=== PATIENT | female | born 1990 | race Two or more races ===

== ENCOUNTER 2021-07-30 10:31 | Emergency (ER) | payer MEDICAID, OTHER ==
[~2021-07-30] VITALS: Ht 157.5 cm; Wt 74.8 kg
[2021-07-30 11:23] VITALS: BP 125/81
[2021-07-30] MEDS ORDERED: ACETAMINOPHEN 500 MG TAB PO ONE (12:00)
== END 2021-07-30 12:28 | disposition home or self-care (01) ==
LOC: ER 10:31
DX: S29.012A Strain of muscle and tendon of back wall of thorax, initial encounter (principal); S30.0XXA Contusion of lower back and pelvis, initial encounter; J45.909 Unspecified asthma, uncomplicated; M62.830 Muscle spasm of back; V43.52XA Car driver injured in collision with other type car in traffic accident, initial encounter; Y93.89 Activity, other specified; Y92.89 Other specified places as the place of occurrence of the external cause; Y99.8 Other external cause status
CPT/HCPCS: 72070; 76856

== ENCOUNTER 2022-07-19 12:45 | Observation (INO) | payer MEDICAID, OTHER | END 2022-07-19 15:00 | disposition home or self-care (01) | LOC: LDRP 12:45 | PROVIDERS: ADMIT Obstetrics & Gynecology Obstetrics; ATTEND Obstetrics & Gynecology Obstetrics | DX: O26.852 Spotting complicating pregnancy, second trimester (principal); Z3A.22 22 weeks gestation of pregnancy | CPT/HCPCS: 59025; 76815; 94760; G0378 ==

== ENCOUNTER 2022-09-15 16:33 | Observation (INO) | payer MEDICAID ==
[~2022-09-15] VITALS: Ht 157.5 cm; Wt 79.3 kg
[2022-09-15 16:59] VITALS: BP 115/70
[2022-09-15 18:19] LABS: Urine Bacteria FEW /hpf (None Seen); Urine Hyaline Cast FEW /lpf (0 - 2); Urine Mucus FEW (None Seen); Urine WBC 25 /hpf (0 - 5)
[2022-09-15 18:34] LABS: Urine Blood Negative /uL (Negative)
[2022-09-15] MEDS ORDERED: PREN-96 PO (19:16)
== END 2022-09-15 20:05 | disposition home or self-care (01) ==
LOC: ER 16:33 → LDRP 17:53
PROVIDERS: ADMIT Obstetrics & Gynecology; ATTEND Obstetrics & Gynecology
DX: O26.893 Other specified pregnancy related conditions, third trimester (principal); R10.32 Left lower quadrant pain; O46.93 Antepartum hemorrhage, unspecified, third trimester; O99.513 Diseases of the respiratory system complicating pregnancy, third trimester; J45.909 Unspecified asthma, uncomplicated; Z3A.30 30 weeks gestation of pregnancy
CPT/HCPCS: 59025; 81001; 81002; 81025; 94760; 99284; G0378

== ENCOUNTER 2022-11-19 09:06 | Observation (INO) | payer MEDICAID ==
[~2022-11-19 09:06] MED LIST: PREN-96 PO
[2022-11-19] MEDS ORDERED: ceFAZolin 1GM/50ML 50 ML IV ONE ×2 (13:00→13:30)
[2022-11-19] MEDS ORDERED: ceFAZolin 1GM/50ML 100 ML IV ONE (13:06)
== END 2022-11-19 16:14 | disposition home or self-care (01) ==
LOC: LDRP 09:06 → UNDOADMOB 09:06 → LDRP 09:09
PROVIDERS: ADMIT Obstetrics & Gynecology; ATTEND Obstetrics & Gynecology
DX: O48.0 Post-term pregnancy (principal); O62.9 Abnormality of forces of labor, unspecified; Z3A.40 40 weeks gestation of pregnancy
CPT/HCPCS: 59025; 76818; 81002; 94760; 96361; 96365; G0378; J0690; 96360; 96366

== ENCOUNTER 2022-11-21 10:55 | Observation (INO) | payer MEDICAID | END 2022-11-21 14:12 | disposition home or self-care (01) | LOC: LDRP 10:55 | PROVIDERS: ADMIT Obstetrics & Gynecology; ATTEND Obstetrics & Gynecology | DX: O48.0 Post-term pregnancy (principal); Z20.822 Contact with and (suspected) exposure to COVID-19; O23.43 Unspecified infection of urinary tract in pregnancy, third trimester; Z3A.40 40 weeks gestation of pregnancy | CPT/HCPCS: 36415; 59025; 76818; 81002; 87426; 94760; 96360; 96361; G0378 ==

== ENCOUNTER 2022-11-22 16:24 | Observation (INO) | payer MEDICAID ==
[~2022-11-22] VITALS: Ht 157.5 cm; Wt 83.5 kg
== END 2022-11-22 18:54 | disposition home or self-care (01) ==
LOC: LDRP 16:24 → UNDOADMOB 16:24 → LDRP 16:26 → UNDODISOB 18:54
PROVIDERS: ADMIT Obstetrics & Gynecology; ATTEND Obstetrics & Gynecology
DX: O48.0 Post-term pregnancy (principal); O26.893 Other specified pregnancy related conditions, third trimester; N89.8 Other specified noninflammatory disorders of vagina; Z3A.40 40 weeks gestation of pregnancy
CPT/HCPCS: 59025; 76818; 81002; 94760; G0378

== ENCOUNTER 2022-11-23 09:46 | Inpatient (IN) | payer MEDICAID ==
[~2022-11-23] VITALS: Ht 157.5 cm; Wt 83.0 kg
[2022-11-23] MEDS ORDERED: LIDOCAINE 2%HCL (LOCAL ANESTH.) INJ 20ML MDV IJ PRN (10:15)
[2022-11-23] MEDS ORDERED: PHISODERM TOP SOLN 240ML BTL TOP PRN (10:15)
[2022-11-23] MEDS ORDERED: PROMETHAZINE HCL 25 MG/ML 1ML IV PRN (10:15)
[2022-11-23] MEDS ORDERED: WITCH HAZEL-GLYCERIN PAD TOP PRN (10:15)
[2022-11-23] MEDS ORDERED: BUTORPHANOL TARTRATE 2 MG/1 ML VIAL IV PRN ×2 (10:15)
[2022-11-23] MEDS ORDERED: DERMOPLAST 60ML BOTTLE TOP PRN (10:15)
[2022-11-23 10:54] LABS: Basophils # (auto) 0 10 ^3/uL (0-0.2); Basophils % (auto) 0.4 % (0.0-2.0); Eosinophils # (auto) 0 10 ^3/uL (0-0.8); Eosinophils % (auto) 0.2 % (0.0-7.0); Hematocrit 33.7 % (36.0-46.0); Hemoglobin 11.5 g/dL (12.2-16.2); Lymphocytes # (auto) 1.6 10 ^3/uL (0.4-5.4); Lymphocytes % (auto) 14.8 % (10.0-50.0); Mean Corpuscular Hemoglobin 28.4 pg (28.0-32.0); Mean Corpuscular Hgb Conc. 34.1 g/dL (32.0-36.0); Mean Corpuscular Volume 83.1 fL (80.0-100.0); Monocytes # (auto) 0.4 10 ^3/uL (0-1.3); Monocytes % (auto) 4.1 % (0.0-12.0); Neutrophils # (auto) 8.8 10 ^3/uL (1.6-8.6); Neutrophils % (auto) 80.5 % (37.0-80.0); Nucleated Red Blood Cells % 0.1 %; Red Blood Cells 4.05 10^6/uL (4.0-5.20); Red Cell Distribution Width 16.1 % (11.8-14.3)
[2022-11-23 11:03] LABS: Albumin 2.5 g/dL (3.4-5.0); Calcium 8.5 mg/dL (8.5-10.1); Potassium 3.7 mmol/L (3.5-5.1)
[2022-11-23 11:07] LABS: BUN/Creatinine Ratio 11.9; Bilirubin, Total 0.2 mg/dL (0.2-1.0); Total Protein 6.1 g/dL (6.4-8.2)
[2022-11-23 11:17] LABS: Alcohol, Urine < 3.0 mg/dL (0-10); Amphetamine Screen, Urine NEGATIVE (NEGATIVE); Barbiturate Scree,Urine NEGATIVE (NEGATIVE); Benzodiazephine Screen, Urine NEGATIVE (NEGATIVE); Cannabinoid Screen, Urine NEGATIVE (NEGATIVE); Cocaine Screen, Urine NEGATIVE (NEGATIVE); Opiate Scree,Urine NEGATIVE (NEGATIVE); Phencyclidine Screen, Urine NEGATIVE (NEGATIVE)
[2022-11-23] MEDS: miSOPROStol 50 MCG per PRE-CUT 1/2 TAB PO PRN ×3 (11:19→20:02)
[2022-11-23 11:49] LABS: Urine Bacteria FEW /hpf (None Seen); Urine Blood Negative /uL (Negative); Urine Mucus FEW (None Seen); Urine Specific Gravity 1.016 (1.001-1.035); Urine WBC 25 /hpf (0 - 5)
[2022-11-23 12:41] LABS: INR 0.91 (0.9-1.15); Partial Thromboplastin Time 26.4 sec (24.6-33.4)
[2022-11-23] MEDS: LACTATED RINGER'S 1,000 ML IV SCH ×2 (15:10→15:11)
[2022-11-23] MEDS: ceFAZolin 1GM/50ML 50 ML IV SCH (16:04)
[2022-11-23] MEDS ORDERED: LACTATED RINGER'S 1,000 ML IV ONE (20:15)
[2022-11-23] MEDS ORDERED: ePHEDrine SULFATE 50 MG/ML AMP IV ONE ×2 (20:15→20:30)
[2022-11-23] MEDS ORDERED: NALOXONE HCL 0.4 MG/ML VIAL IV ONE ×2 (20:15→20:30)
[2022-11-23] MEDS ORDERED: ROPIVACAINE HCL 200 ML EPI SCH ×2 (20:15→20:30)
[2022-11-23] MEDS ORDERED: LIDOCAINE HCL 2 %PF INJ 10ML AMP IJ ONE (20:30)
[2022-11-23] MEDS ORDERED: fentaNYL CITRATE 100 MCG/2 ML VL IV ONE (20:30)
[2022-11-23] MEDS ORDERED: LIDOCAINE 1%-Mpf/Epinephrine 1:200,000 IJ ONE (20:30)
[2022-11-23 21:14] LABS: Basophils # (auto) 0 10 ^3/uL (0-0.2); Basophils % (auto) 0.1 % (0.0-2.0); Eosinophils # (auto) 0 10 ^3/uL (0-0.8); Hematocrit 35.4 % (36.0-46.0); Hemoglobin 11.7 g/dL (12.2-16.2); Lymphocytes # (auto) 1.4 10 ^3/uL (0.4-5.4); Lymphocytes % (auto) 10.3 % (10.0-50.0); Mean Corpuscular Hemoglobin 27.5 pg (28.0-32.0); Mean Corpuscular Volume 83.5 fL (80.0-100.0); Monocytes # (auto) 0.5 10 ^3/uL (0-1.3); Monocytes % (auto) 3.7 % (0.0-12.0); Neutrophils # (auto) 11.6 10 ^3/uL (1.6-8.6); Neutrophils % (auto) 85.9 % (37.0-80.0); Red Blood Cells 4.24 10^6/uL (4.0-5.20); Red Cell Distribution Width 15.8 % (11.8-14.3); White Blood Cell 13.6 10^3/uL (4.4-10.8)
[2022-11-24] VITALS (8 sets, daily range): BP systolic 78–113; BP diastolic 46–65
[2022-11-24] MEDS: ceFAZolin 1GM/50ML 50 ML IV SCH ×4 (00:01→17:10)
[2022-11-24] MEDS: LACTATED RINGER'S 1,000 ML IV SCH ×3 (00:07→12:59)
[2022-11-24] MEDS ORDERED: LACT. RINGERS/OXYTOCIN 20UNITS 500 ML IV ONE (02:30)
[2022-11-24] MEDS ORDERED: LACT. RINGERS/OXYTOCIN 20UNITS 1,000 ML IV SCH ×2 (03:00→07:15)
[2022-11-24 06:06] LABS: RPR Non Reactive (Non Reactive)
[2022-11-24] MEDS ORDERED: TERBUTALINE SULFATE 1 MG/ML 1ML VIAL SC PRN (07:15)
[2022-11-24] MEDS ORDERED: LIDOCAINE HCL 2 %PF INJ 10ML AMP IJ ONE (09:17)
[2022-11-24] MEDS ORDERED: MORPHINE SULF PF 5 MG/10 ML VIAL ONE (09:19)
[2022-11-24] MEDS ORDERED: fentaNYL CITRATE 100 MCG/2 ML VL ONE (09:19)
[2022-11-24] MEDS ORDERED: SODIUM BICARBONATE INFANT SYR 10 ML SYRG IV ONE (09:20)
[2022-11-24] MEDS ORDERED: DexAMETHasone SOD PHOS 10MG/1ML VIAL INJ ONE (09:20)
[2022-11-24] MEDS ORDERED: ONDANSETRON HCL 4 MG/2 ML VIAL ONE ×2 (09:20→13:49)
[2022-11-24] MEDS ORDERED: MIDAZOLAM HCL 2MG/2ML 2ml VIAL (1mg/ml) ONE (09:20)
[2022-11-24] MEDS ORDERED: oxyTOCIN 10 UNIT/ML 10ML VIAL ONE (09:20)
[2022-11-24] MEDS ORDERED: DOCU-94 PO (09:22)
[2022-11-24] MEDS ORDERED: IBUP800T27 PO (09:23)
[2022-11-24] MEDS ORDERED: HYDR-4902 PO (09:23)
[2022-11-24] MEDS ORDERED: LACT. RINGERS/OXYTOCIN 20UNITS 1,000 ML IV ONE (09:30)
[2022-11-24] MEDS ORDERED: ONDANSETRON HCL 4 MG/2 ML VIAL IV PRN (09:30)
[2022-11-24] MEDS ORDERED: GUM (CHEWING) 1 GUM CHEW CHEW ONE (09:30)
[2022-11-24] MEDS ORDERED: CARBOPROST TROMETHAMINE 250 MCG/1ML VIAL IM ONE (09:51)
[2022-11-24] MEDS ORDERED: HYDROmorphone HCL 2 MG/ML VL/or syr IV PRN ×2 (11:00)
[2022-11-24] MEDS ORDERED: NALOXONE HCL 0.4 MG/ML VIAL IV PRN (11:00)
[2022-11-24] MEDS ORDERED: METOCLOPRAMIDE HCL 5MG/ml INJ 2ml VIAL IV PRN (11:00)
[2022-11-24] MEDS ORDERED: MORPHINE SULFATE 4 MG/ML SYR/VIAL IV PRN (11:00)
[2022-11-24] MEDS ORDERED: KETOROLAC TROMETH 30 MG/ML 1ML VIAL IV ONE (11:00)
[2022-11-24] MEDS ORDERED: diphenhdrAMINE HCL 50 MG/1 ML VL IV PRN (11:00)
[2022-11-24] MEDS ORDERED: ePHEDrine SULFATE 50 MG/ML AMP IV ONE (11:45)
[2022-11-24] MEDS ORDERED: ALBUTEROL SULF 2.5 MG/0.5ML(0.5%) NEB SOLN NEB PRN (12:45)
[2022-11-24] MEDS ORDERED: ALBUTEROL MEDNEB 2.5 mg/3ml NEB ONE (12:47)
[2022-11-24 12:59] LABS: Basophils # (auto) 0 10 ^3/uL (0-0.2); Basophils % (auto) 0.2 % (0.0-2.0); Eosinophils # (auto) 0 10 ^3/uL (0-0.8); Hematocrit 32.4 % (36.0-46.0); Hemoglobin 11.2 g/dL (12.2-16.2); Lymphocytes # (auto) 0.9 10 ^3/uL (0.4-5.4); Lymphocytes % (auto) 3.7 % (10.0-50.0); Mean Corpuscular Hemoglobin 28.8 pg (28.0-32.0); Mean Corpuscular Hgb Conc. 34.5 g/dL (32.0-36.0); Mean Corpuscular Volume 83.7 fL (80.0-100.0); Monocytes # (auto) 0.7 10 ^3/uL (0-1.3); Monocytes % (auto) 3.1 % (0.0-12.0); Neutrophils # (auto) 22.2 10 ^3/uL (1.6-8.6); Red Blood Cells 3.87 10^6/uL (4.0-5.20); White Blood Cell 23.8 10^3/uL (4.4-10.8)
[2022-11-24] MEDS ORDERED: ALBUMIN 5% 50 ML IV ONE ×2 (13:00→13:05)
[2022-11-24 13:17] LABS: Albumin 2.1 g/dL (3.4-5.0); Calcium 7.9 mg/dL (8.5-10.1); INR 0.92 (0.9-1.15); Partial Thromboplastin Time 26.2 sec (24.6-33.4); Potassium 4.3 mmol/L (3.5-5.1)
[2022-11-24 13:20] LABS: Bilirubin, Total 0.3 mg/dL (0.2-1.0); Total Protein 5.6 g/dL (6.4-8.2)
[2022-11-24] MEDS ORDERED: KETOROLAC TROMETH 30 MG/ML 1ML VIAL ONE (13:49)
[2022-11-24] MEDS ORDERED: SODIUM CHLORIDE 0.9% 1,000 ML IV SCH (16:45)
[2022-11-24 20:50] LABS: Albumin 2.1 g/dL (3.4-5.0); Calcium 8.3 mg/dL (8.5-10.1); Potassium 4.3 mmol/L (3.5-5.1)
[2022-11-24 20:53] LABS: Bilirubin, Total 0.3 mg/dL (0.2-1.0)
[2022-11-24 22:00] LABS: Basophils # (auto) 0.1 10 ^3/uL (0-0.2); Basophils % (auto) 0.4 % (0.0-2.0); Eosinophils # (auto) 0 10 ^3/uL (0-0.8); Hematocrit 28.3 % (36.0-46.0); Hemoglobin 9.5 g/dL (12.2-16.2); Lymphocytes # (auto) 1.2 10 ^3/uL (0.4-5.4); Lymphocytes % (auto) 6.4 % (10.0-50.0); Mean Corpuscular Hemoglobin 28.2 pg (28.0-32.0); Mean Corpuscular Hgb Conc. 33.7 g/dL (32.0-36.0); Mean Corpuscular Volume 83.7 fL (80.0-100.0); Monocytes % (auto) 5.2 % (0.0-12.0); Neutrophils # (auto) 16.8 10 ^3/uL (1.6-8.6); Red Blood Cells 3.38 10^6/uL (4.0-5.20); Red Cell Distribution Width 16.4 % (11.8-14.3); White Blood Cell 19.1 10^3/uL (4.4-10.8)
[2022-11-24 22:17] LABS: BUN/Creatinine Ratio 11.5; Calcium 8.2 mg/dL (8.5-10.1); Potassium 4.2 mmol/L (3.5-5.1)
[2022-11-25] VITALS (13 sets, daily range): BP systolic 77–105; BP diastolic 43–55
[2022-11-25] MEDS: ceFAZolin 1GM/50ML 50 ML IV SCH (00:52)
[2022-11-25 07:09] LABS: Basophils # (auto) 0 10 ^3/uL (0-0.2); Basophils % (auto) 0.2 % (0.0-2.0); Eosinophils # (auto) 0 10 ^3/uL (0-0.8); Eosinophils % (auto) 0.1 % (0.0-7.0); Hemoglobin 8.9 g/dL (12.2-16.2); Lymphocytes % (auto) 13.4 % (10.0-50.0); Mean Corpuscular Hemoglobin 28.8 pg (28.0-32.0); Mean Corpuscular Hgb Conc. 34.4 g/dL (32.0-36.0); Mean Corpuscular Volume 83.9 fL (80.0-100.0); Monocytes # (auto) 1.1 10 ^3/uL (0-1.3); Monocytes % (auto) 7.6 % (0.0-12.0); Neutrophils # (auto) 11.7 10 ^3/uL (1.6-8.6); Neutrophils % (auto) 78.7 % (37.0-80.0); Nucleated Red Blood Cells % 0.1 %; Red Cell Distribution Width 16.9 % (11.8-14.3); White Blood Cell 14.9 10^3/uL (4.4-10.8)
[2022-11-25] MEDS: ACETAMINOPHEN IV 1000 MG/100ML (10MG/ML) IV PRN ×2 (08:16→15:54)
[2022-11-25] MEDS: IBUPROFEN 800 MG TAB PO PRN ×3 (11:32→16:27)
[2022-11-25] MEDS ORDERED: KETOROLAC TROMETH 30 MG/ML 1ML VIAL IV ONE (11:45)
[2022-11-25] MEDS: FERROUS SULFATE 325mg EC TAB PO SCH ×3 (11:53→22:15)
[2022-11-25 17:05] LABS: Cholesterol 179 mg/dL (< 200); HDL Cholesterol 56 mg/dL (40-59); LDL Cholesterol 89 mg/dL (< 100); Triglycerides 331 mg/dL (< 150)
[2022-11-25] MEDS: IBUPROFEN 100MG/5ML ORAL SUSP 100 MG/5 ML UD PO PRN (20:28)
[2022-11-26] MEDS: ACETAMINOPHEN 650 mg PER 20.3 mL UD PO PRN ×2 (01:52→12:40)
[2022-11-26 05:00] VITALS: BP 97/54
[2022-11-26] MEDS: FERROUS SULFATE 325mg EC TAB PO SCH ×2 (05:29→16:03)
[2022-11-26 06:43] VITALS: BP 102/58
[2022-11-26 08:00] VITALS: BP 105/60
[2022-11-26] MEDS: IBUPROFEN 100MG/5ML ORAL SUSP 100 MG/5 ML UD PO PRN (08:10)
[2022-11-26 10:00] VITALS: BP 93/59
[2022-11-26 12:00] VITALS: BP 110/58
[2022-11-26 16:00] VITALS: BP 101/60
== END 2022-11-26 16:33 | disposition home or self-care (01) | DRG 540 ==
LOC: LDRP 09:46 → TELE-CENTR 11-25 14:05
PROVIDERS: ADMIT Obstetrics & Gynecology; ATTEND Internal Medicine Pulmonary Disease
PROC: 3E0P7VZ Introduction of Hormone into Female Reproductive, Via Natural or Artificial Opening (ICD-10-PCS; 2022-11-23)
PROC: 10D00Z1 Extraction of Products of Conception, Low, Open Approach (ICD-10-PCS; principal; 2022-11-24 09:29)
DX: O48.0 Post-term pregnancy (principal); J96.01 Acute respiratory failure with hypoxia; I21.A1 Myocardial infarction type 2; I50.31 Acute diastolic (congestive) heart failure; I47.1 Supraventricular tachycardia; O23.43 Unspecified infection of urinary tract in pregnancy, third trimester; O99.42 Diseases of the circulatory system complicating childbirth; O76 Abnormality in fetal heart rate and rhythm complicating labor and delivery; O99.52 Diseases of the respiratory system complicating childbirth; O99.214 Obesity complicating childbirth; O61.9 Failed induction of labor, unspecified; Z20.822 Contact with and (suspected) exposure to COVID-19; O26.53 Maternal hypotension syndrome, third trimester; O69.1XX0 Labor and delivery complicated by cord around neck, with compression, not applicable or unspecified; O77.0 Labor and delivery complicated by meconium in amniotic fluid; J45.909 Unspecified asthma, uncomplicated; O99.02 Anemia complicating childbirth; Z37.0 Single live birth; Z3A.40 40 weeks gestation of pregnancy; Z82.5 Family history of asthma and other chronic lower respiratory diseases
CPT/HCPCS: 36415; 36600; 59025; 62282; 70450; 71045; 76700; 78582; 80048; 80053; 80061; 80307; 81001; 81002; 82533; 82805; 83036; 83880; 84443; 84484; 85025; 85384; 85610; 85730; 86592; 86850; 86900; 86901; 86920; 87426; 93306; 94640; 94760; 94762; 96360; 96361; G0378; J0131; J0690; J1100; J1885; J2250; J2405; J2590

== ENCOUNTER 2023-04-22 08:19 | Inpatient (IN) | payer MEDICAID ==
[~2023-04-22] VITALS: Ht 157.5 cm; Wt 67.4 kg
[~2023-04-22 08:19] MED LIST changes: +DOCU-94 PO; +HYDR-4902 PO; +IBUP-1456 PO
[2023-04-22 09:23] LABS: Basophils # (auto) 0 10 ^3/uL (0-0.2); Basophils % (auto) 0.5 % (0.0-2.0); Eosinophils # (auto) 0.1 10 ^3/uL (0-0.8); Eosinophils % (auto) 2.7 % (0.0-7.0); Hematocrit 38.3 % (36.0-46.0); Hemoglobin 13.1 g/dL (12.2-16.2); Lymphocytes # (auto) 1.9 10 ^3/uL (0.4-5.4); Lymphocytes % (auto) 37.9 % (10.0-50.0); Mean Corpuscular Hemoglobin 28.2 pg (28.0-32.0); Mean Corpuscular Hgb Conc. 34.2 g/dL (32.0-36.0); Mean Corpuscular Volume 82.6 fL (80.0-100.0); Monocytes # (auto) 0.6 10 ^3/uL (0-1.3); Monocytes % (auto) 11.5 % (0.0-12.0); Neutrophils # (auto) 2.4 10 ^3/uL (1.6-8.6); Neutrophils % (auto) 47.4 % (37.0-80.0); Nucleated Red Blood Cells % 0.2 %; Red Blood Cells 4.64 10^6/uL (4.0-5.20); Red Cell Distribution Width 12.8 % (11.8-14.3); White Blood Cell 5.1 10^3/uL (4.4-10.8)
[2023-04-22 10:00] LABS: Albumin 3.4 g/dL (3.4-5.0); Calcium 9.8 mg/dL (8.5-10.1); Magnesium 1.8 mg/dL (1.6-2.6); Potassium 4.5 mmol/L (3.5-5.1)
[2023-04-22 10:03] LABS: BUN/Creatinine Ratio 34.1 (10.0-20.0); Bilirubin, Total 0.4 mg/dL (0.2-1.0); Total Protein 6.7 g/dL (6.4-8.2)
[2023-04-22] MEDS ORDERED: LACTATED RINGER'S 1,000 ML IV ONE (10:30)
[2023-04-22] MEDS ORDERED: DexAMETHasone SOD PHOS 10MG/1ML VIAL INJ IV ONE (11:15)
[2023-04-22] MEDS ORDERED: ALBUTEROL SULF 2.5 MG/0.5ML(0.5%) NEB SOLN NEB ONE (11:15)
[2023-04-22] MEDS ORDERED: IPRATROPIUM BROM 0.5 MG/2.5ML INH SOL NEB ONE (11:15)
[2023-04-22] MEDS ORDERED: ADENOSINE 6 MG/2 ML INJ IV ONE ×3 (13:45→14:30)
[2023-04-22] MEDS ORDERED: dilTIAZem 25 MG/5 ML VIAL IV ONE ×2 (13:47→14:00)
[2023-04-22] MEDS ORDERED: METOPROLOL TARTRATE 1MG/1ML-5ML VIAL IV ONE (13:51)
[2023-04-22] MEDS: METOPROLOL TARTRATE 1MG/1ML-5ML VIAL IV SCH ×3 (13:54→14:10)
[2023-04-22] MEDS ORDERED: METOPROLOL SUCCINATE XL 50 MG TAB PO ONE (14:15)
[2023-04-22] MEDS: MAGNESIUM SULFATE 1GM/100ML 100 ML IV SCH ×2 (14:34→16:37)
[2023-04-22] MEDS ORDERED: MORPHINE SULFATE INJ 2 MG/ml SYRG IV PRN (15:00)
[2023-04-22] MEDS ORDERED: MAGNESIUM SULFATE 1GM/100ML 100 ML IV ONE (16:28)
[2023-04-22] MEDS: methylPREDNISolone SOD SUCC 125 MG/2 ML VL IV SCH (22:54)
[2023-04-22] MEDS: METOPROLOL TARTRATE 25 MG TAB PO SCH (22:55)
[2023-04-23 06:03] LABS: Basophils # (auto) 0 10 ^3/uL (0-0.2); Eosinophils # (auto) 0 10 ^3/uL (0-0.8); Hematocrit 33.5 % (36.0-46.0); Hemoglobin 11.3 g/dL (12.2-16.2); Lymphocytes # (auto) 0.8 10 ^3/uL (0.4-5.4); Lymphocytes % (auto) 8.9 % (10.0-50.0); Mean Corpuscular Hemoglobin 27.9 pg (28.0-32.0); Mean Corpuscular Hgb Conc. 33.9 g/dL (32.0-36.0); Mean Corpuscular Volume 82.5 fL (80.0-100.0); Monocytes # (auto) 0.1 10 ^3/uL (0-1.3); Monocytes % (auto) 0.9 % (0.0-12.0); Neutrophils # (auto) 7.6 10 ^3/uL (1.6-8.6); Neutrophils % (auto) 90.2 % (37.0-80.0); Red Blood Cells 4.06 10^6/uL (4.0-5.20); Red Cell Distribution Width 12.6 % (11.8-14.3); White Blood Cell 8.4 10^3/uL (4.4-10.8)
[2023-04-23] MEDS: methylPREDNISolone SOD SUCC 125 MG/2 ML VL IV SCH ×3 (06:20→22:51)
[2023-04-23 06:25] LABS: Potassium 3.7 mmol/L (3.5-5.1)
[2023-04-23 06:36] LABS: Calcium 9.2 mg/dL (8.5-10.1)
[2023-04-23 06:39] LABS: Bilirubin, Total 0.4 mg/dL (0.2-1.0); Total Protein 6.5 g/dL (6.4-8.2)
[2023-04-23] MEDS: METOPROLOL TARTRATE 25 MG TAB PO SCH ×2 (10:26→23:05)
[2023-04-23] MEDS ORDERED: PROPYLTHIOURACIL 50 MG TAB PO SCH (13:00)
[2023-04-23 15:22] LABS: Urine Bacteria NONE SEEN /hpf (None Seen); Urine Blood 2+ /uL (Negative); Urine Mucus FEW (None Seen); Urine Specific Gravity 1.016 (1.001-1.035); Urine WBC 5 /hpf (0 - 5)
[2023-04-23 15:55] LABS: Alcohol, Urine < 3.0 mg/dL (0-10); Amphetamine Screen, Urine NEGATIVE (NEGATIVE); Barbiturate Scree,Urine NEGATIVE (NEGATIVE); Benzodiazephine Screen, Urine NEGATIVE (NEGATIVE); Cannabinoid Screen, Urine NEGATIVE (NEGATIVE); Cocaine Screen, Urine NEGATIVE (NEGATIVE); Opiate Scree,Urine NEGATIVE (NEGATIVE); Phencyclidine Screen, Urine NEGATIVE (NEGATIVE)
[2023-04-24] MEDS: methylPREDNISolone SOD SUCC 125 MG/2 ML VL IV SCH ×2 (07:54→14:06)
[2023-04-24] MEDS: METOPROLOL TARTRATE 25 MG TAB PO SCH (10:09)
[2023-04-24] MEDS ORDERED: PRED10TA PO (18:58)
[2023-04-24] MEDS ORDERED: METOPROLOL TARTRATE 25 MG TAB PO ONE (19:00)
[2023-04-24] MEDS ORDERED: MET50T PO (19:01)
[2023-04-24 19:33] VITALS: BP 107/45
== END 2023-04-24 19:43 | disposition home or self-care (01) | DRG 427 ==
LOC: ER 08:19 → TELE 14:24
PROVIDERS: ADMIT Nurse Practitioner Family; ATTEND Nurse Practitioner Family
DX: E05.00 Thyrotoxicosis with diffuse goiter without thyrotoxic crisis or storm (principal); I47.1 Supraventricular tachycardia; E86.0 Dehydration; R06.03 Acute respiratory distress; Z91.018 Allergy to other foods
CPT/HCPCS: 36415; 71045; 76536; 80053; 80307; 81001; 81025; 83735; 83880; 84100; 84439; 84443; 84484; 84702; 85025; 85379; 86850; 86900; 86901; 93005; 93306; 93970; 94640; 96361; 96374; 96375; 99291; G0378; J1100

== ENCOUNTER 2023-12-19 11:22 | Inpatient (IN) | payer MEDICAID ==
[~2023-12-19] VITALS: Ht 157.5 cm; Wt 56.0 kg
[~2023-12-19 11:22] MED LIST changes: +MET50T PO; +PRED10TA PO
[2023-12-19 12:30] VITALS: PULSE 140; RESP 17; O2SAT 96
[2023-12-19 12:44] LABS: Basophils # (auto) 0 10 ^3/uL (0-0.2); Basophils % (auto) 0.3 % (0.0-2.0); Eosinophils # (auto) 0 10 ^3/uL (0-0.8); Hemoglobin 11.8 g/dL (12.2-16.2); Mean Corpuscular Hemoglobin 26.6 pg (28.0-32.0); Monocytes # (auto) 0.6 10 ^3/uL (0-1.3); Neutrophils # (auto) 2.4 10 ^3/uL (1.6-8.6); White Blood Cell 5.2 10^3/uL (4.4-10.8)
[2023-12-19 12:46] LABS: Eosinophils % (auto) 0.7 % (0.0-7.0); Hematocrit 35.5 % (36.0-46.0); Lymphocytes # (auto) 2.2 10 ^3/uL (0.4-5.4); Mean Corpuscular Hgb Conc. 33.2 g/dL (32.0-36.0); Mean Corpuscular Volume 80.1 fL (80.0-100.0); Monocytes % (auto) 10.9 % (0.0-12.0); Neutrophils % (auto) 46.1 % (37.0-80.0); Nucleated Red Blood Cells % 0.2 %; Red Blood Cells 4.43 10^6/uL (4.0-5.20); Red Cell Distribution Width 13.2 % (11.8-14.3)
[2023-12-19 12:52] LABS: INR 1.13 (0.9-1.15); Partial Thromboplastin Time 30.5 SEC (24.5-34.5); Prothrombin Time 11.8 sec (9.3-11.8)
[2023-12-19 13:12] LABS: Urine Bacteria FEW /hpf (None Seen); Urine Blood Negative /uL (Negative); Urine Clarity HAZY (Clear); Urine Color Yellow (Yellow); Urine Mucus FEW (None Seen); Urine Protein, UAD TRACE (Negative); Urine Specific Gravity 1.021 (1.001-1.035); Urine Urobilinogen Normal (Negative); Urine WBC 2 /hpf (0 - 5)
[2023-12-19 13:15] LABS: Alanine Aminotransferase 37 U/L (7-40); Albumin 3.7 g/dL (3.2-4.8); Alkaline Phosphatase 97 U/L (46-116); Anion Gap 6 (5-15); Aspartate Aminotransferase 19 U/L (13-40); BUN/Creatinine Ratio 27.5 (10.0-20.0); Blood Urea Nitrogen 11 mg/dL (9-23); Calcium 10.5 mg/dL (8.5-10.1); Carbon Dioxide 27 mmol/L (20-30); Chloride 108 mmol/L (98-107); Glucose 121 mg/dL (74-106); Potassium 3.9 mmol/L (3.5-5.1); Sodium 141 mmol/L (136-145)
[2023-12-19 13:16] LABS: Bilirubin, Total 0.8 mg/dL (0.2-1.0)
[2023-12-19] MEDS: ASPirin 81 mg TAB PO ONE (13:18)
[2023-12-19] MEDS: METOPROLOL TARTRATE 1MG/1ML-5ML VIAL IV SCH (13:19)
[2023-12-19 13:22] LABS: Thyroid Stimulating Hormone < 0.01 uIU/mL (0.55-4.78)
[2023-12-19 13:23] LABS: Beta HCG, Quantitative 1.3 mIU/mL (1.5-4.2)
[2023-12-19 13:27] LABS: Amphetamine Screen, Urine Neg (NEGATIVE); Barbiturate Scree,Urine Neg (NEGATIVE); Benzodiazephine Screen, Urine Neg (NEGATIVE); Cocaine Screen, Urine Neg (NEGATIVE)
[2023-12-19 13:28] LABS: Cannabinoid Screen, Urine Neg (NEGATIVE); Opiate Scree,Urine Neg (NEGATIVE); Phencyclidine Screen, Urine Neg (NEGATIVE)
[2023-12-19] MEDS ORDERED: ONDANSETRON HCL 4 MG/2 ML VIAL IV PRN (13:45)
[2023-12-19] MEDS ORDERED: DOCUSATE SOD 100 MG CAP PO PRN (13:45)
[2023-12-19] MEDS ORDERED: MORPHINE SULFATE INJ 2 MG/ml SYRG IV PRN (13:45)
[2023-12-19] MEDS: SODIUM CHLORIDE 0.9% 1,000 ML IV ONE (14:50)
[2023-12-19] MEDS: PROPYLTHIOURACIL 50 MG TAB PO SCH (14:53)
[2023-12-19] MEDS: LORazepam 2MG/ML-1ML VIAL IV ONE (21:51)
[2023-12-19] MEDS: SODIUM CHLORIDE 0.9% 1,000 ML IV SCH (22:03)
[2023-12-20] VITALS (10 sets, daily range): BP systolic 106–119; BP diastolic 50–69; PULSE 108–136; RESP 16–20; TEMP 97.7–98.2; O2SAT 95–98
[2023-12-20 06:22] LABS: Basophils # (auto) 0 10 ^3/uL (0-0.2); Basophils % (auto) 0.3 % (0.0-2.0); Eosinophils # (auto) 0.1 10 ^3/uL (0-0.8); Eosinophils % (auto) 3.1 % (0.0-7.0); Hematocrit 33.5 % (36.0-46.0); Hemoglobin 11.1 g/dL (12.2-16.2); Lymphocytes # (auto) 2.2 10 ^3/uL (0.4-5.4); Lymphocytes % (auto) 49.1 % (10.0-50.0); Mean Corpuscular Hemoglobin 26.7 pg (28.0-32.0); Mean Corpuscular Hgb Conc. 33.1 g/dL (32.0-36.0); Mean Corpuscular Volume 80.6 fL (80.0-100.0); Monocytes # (auto) 0.6 10 ^3/uL (0-1.3); Monocytes % (auto) 14.1 % (0.0-12.0); Neutrophils # (auto) 1.5 10 ^3/uL (1.6-8.6); Neutrophils % (auto) 33.4 % (37.0-80.0); Nucleated Red Blood Cells % 0.1 %; Red Blood Cells 4.15 10^6/uL (4.0-5.20); White Blood Cell 4.5 10^3/uL (4.4-10.8)
[2023-12-20 06:24] LABS: Alanine Aminotransferase 31 U/L (7-40); Albumin 3.5 g/dL (3.2-4.8); Alkaline Phosphatase 88 U/L (46-116); Anion Gap 5 (5-15); Aspartate Aminotransferase 29 U/L (13-40); BUN/Creatinine Ratio 34.5 (10.0-20.0); Bilirubin, Total 0.7 mg/dL (0.2-1.0); Blood Urea Nitrogen 10 mg/dL (9-23); Carbon Dioxide 26 mmol/L (20-30); Chloride 110 mmol/L (98-107); Glucose 97 mg/dL (74-106); Potassium 3.9 mmol/L (3.5-5.1); Sodium 141 mmol/L (136-145); Total Protein 5.5 g/dL (5.7-8.2)
[2023-12-20] MEDS: predniSONE 5 MG TAB PO SCH (10:21)
[2023-12-20] MEDS: METOPROLOL TARTRATE 25 MG TAB PO ONE (10:21)
[2023-12-20] MEDS: PROPYLTHIOURACIL 50 MG TAB PO SCH (10:47)
[2023-12-21] VITALS (7 sets, daily range): BP systolic 105–116; BP diastolic 51–56; PULSE 95–133; RESP 15–21; TEMP 97.7–98.3; O2SAT 94–98
[2023-12-21 05:25] LABS: Basophils # (auto) 0 10 ^3/uL (0-0.2); Lymphocytes # (auto) 2.1 10 ^3/uL (0.4-5.4); Monocytes # (auto) 0.7 10 ^3/uL (0-1.3); Neutrophils # (auto) 1.6 10 ^3/uL (1.6-8.6); Nucleated Red Blood Cells % 0.1 %; White Blood Cell 4.6 10^3/uL (4.4-10.8)
[2023-12-21 05:28] LABS: Basophils % (auto) 0.3 % (0.0-2.0); Eosinophils # (auto) 0.2 10 ^3/uL (0-0.8); Eosinophils % (auto) 3.4 % (0.0-7.0); Lymphocytes % (auto) 46.3 % (10.0-50.0); Mean Corpuscular Hemoglobin 26.7 pg (28.0-32.0); Mean Corpuscular Hgb Conc. 33.2 g/dL (32.0-36.0); Mean Corpuscular Volume 80.4 fL (80.0-100.0); Monocytes % (auto) 15.5 % (0.0-12.0); Neutrophils % (auto) 34.5 % (37.0-80.0); Red Blood Cells 4.11 10^6/uL (4.0-5.20); Red Cell Distribution Width 13.2 % (11.8-14.3)
[2023-12-21 05:39] LABS: Anion Gap 8 (5-15); Carbon Dioxide 25 mmol/L (20-30); Chloride 109 mmol/L (98-107); Potassium 3.6 mmol/L (3.5-5.1); Sodium 142 mmol/L (136-145)
[2023-12-21 05:40] LABS: Calcium 10.3 mg/dL (8.5-10.1)
[2023-12-21 05:45] LABS: BUN/Creatinine Ratio 26.9 (10.0-20.0); Blood Urea Nitrogen 7 mg/dL (9-23); Glucose 98 mg/dL (74-106)
[2023-12-21 08:06] LABS: Free Thyroxine Index >13.9 (1.2-4.9); T3 Uptake >56 % (24-39); Thyroxine (T4) >24.9 ug/dL (4.5-12.0)
[2023-12-21 10:58] LABS: Free T3 17.28 pg/mL (2.3-4.2); Free T4 (Free Thyroxine) 9.23 ng/dL (0.89-1.76)
[2023-12-21] MEDS: METOPROLOL TARTRATE 25 MG TAB PO SCH (11:58)
[2023-12-21] MEDS: PROPYLTHIOURACIL 50 MG TAB PO SCH (13:43)
== END 2023-12-21 17:27 | disposition left against medical advice (07) | DRG 427 ==
LOC: ER 11:22 → TELE 13:58 → TELE-WESTW 22:38
PROVIDERS: ADMIT Internal Medicine; ATTEND Internal Medicine
DX: E05.01 Thyrotoxicosis with diffuse goiter with thyrotoxic crisis or storm (principal); E03.9 Hypothyroidism, unspecified; F41.9 Anxiety disorder, unspecified; I48.91 Unspecified atrial fibrillation; J45.909 Unspecified asthma, uncomplicated; T38.2X6A Underdosing of antithyroid drugs, initial encounter; Z91.128 Patient's intentional underdosing of medication regimen for other reason
CPT/HCPCS: 36415; 70450; 71045; 80048; 80053; 80307; 81001; 83880; 84439; 84443; 84479; 84481; 84702; 85025; 85610; 85730; 93005; 99291; G0378

== ENCOUNTER 2023-12-23 08:32 | Inpatient (IN) | payer MEDICAID ==
[~2023-12-23] VITALS: Ht 157.5 cm; Wt 56.0 kg
[~2023-12-23 08:32] MED LIST changes: -DOCU-94 PO; -HYDR-4902 PO; -IBUP-1456 PO; -PREN-96 PO
[2023-12-23 09:26] LABS: Basophils # (auto) 0 10 ^3/uL (0-0.2); Basophils % (auto) 0.7 % (0.0-2.0); Eosinophils # (auto) 0.1 10 ^3/uL (0-0.8); Eosinophils % (auto) 1.9 % (0.0-7.0); Hematocrit 40.1 % (36.0-46.0); Hemoglobin 13.3 g/dL (12.2-16.2); Lymphocytes % (auto) 47.1 % (10.0-50.0); Mean Corpuscular Hemoglobin 26.4 pg (28.0-32.0); Mean Corpuscular Hgb Conc. 33.2 g/dL (32.0-36.0); Mean Corpuscular Volume 79.6 fL (80.0-100.0); Monocytes # (auto) 0.5 10 ^3/uL (0-1.3); Monocytes % (auto) 12.2 % (0.0-12.0); Neutrophils # (auto) 1.6 10 ^3/uL (1.6-8.6); Neutrophils % (auto) 38.1 % (37.0-80.0); Nucleated Red Blood Cells % 0.2 %; Red Blood Cells 5.04 10^6/uL (4.0-5.20); Red Cell Distribution Width 13.3 % (11.8-14.3); White Blood Cell 4.2 10^3/uL (4.4-10.8)
[2023-12-23 09:41] LABS: Alanine Aminotransferase 62 U/L (7-40); Alkaline Phosphatase 103 U/L (46-116); Anion Gap 5 (5-15); BUN/Creatinine Ratio 21.6 (10.0-20.0); Blood Urea Nitrogen 8 mg/dL (9-23); Carbon Dioxide 28 mmol/L (20-30); Chloride 107 mmol/L (98-107); Glucose 107 mg/dL (74-106); Sodium 140 mmol/L (136-145)
[2023-12-23 09:42] LABS: Albumin 4.2 g/dL (3.2-4.8); Aspartate Aminotransferase 39 U/L (13-40); Bilirubin, Total 0.9 mg/dL (0.2-1.0); Total Protein 6.6 g/dL (5.7-8.2)
[2023-12-23 10:40] LABS: Urine Bacteria NONE SEEN /hpf (None Seen); Urine Blood Negative /uL (Negative); Urine Budding Yeast FEW /hpf (None Seen); Urine Clarity HAZY (Clear); Urine Color Yellow (Yellow); Urine Hyaline Cast MOD /lpf (0 - 2); Urine Mucus FEW (None Seen); Urine Protein, UAD 1+ (Negative); Urine Specific Gravity 1.015 (1.001-1.035); Urine Urobilinogen Normal (Negative); Urine WBC 30 /hpf (0 - 5); Urine pH 6.5 (5.0-8.0)
[2023-12-23 10:51] LABS: Acetaminophen < 2.0 UG/ML (10.0-20.0)
[2023-12-23 10:57] LABS: Amphetamine Screen, Urine Neg (NEGATIVE)
[2023-12-23 10:59] LABS: Barbiturate Scree,Urine Neg (NEGATIVE); Benzodiazephine Screen, Urine Neg (NEGATIVE); Cocaine Screen, Urine Neg (NEGATIVE)
[2023-12-23 11:00] LABS: Salicylate < 3.0 mg/dL (2.8-20.0)
[2023-12-23 11:00] LABS: Cannabinoid Screen, Urine Neg (NEGATIVE); Opiate Scree,Urine Neg (NEGATIVE); Phencyclidine Screen, Urine Neg (NEGATIVE)
[2023-12-23 11:40] LABS: Free T3 19.59 pg/mL (2.3-4.2)
[2023-12-23 11:41] LABS: Free T4 (Free Thyroxine) 6.76 ng/dL (0.89-1.76)
[2023-12-23] MEDS: methylPREDNISolone SOD SUCC 125 MG/2 ML VL IV ONE (12:59)
[2023-12-23] MEDS ORDERED: MORPHINE SULFATE INJ 2 MG/ml SYRG IV PRN (13:00)
[2023-12-23] MEDS ORDERED: ACETAMINOPHEN 325 MG TAB PO PRN (13:00)
[2023-12-23] MEDS ORDERED: NITROGLYCERIN 0.4 MG SL TAB SL PRN (13:00)
[2023-12-23] MEDS: PROPYLTHIOURACIL 50 MG TAB PO ONE ×2 (13:52→13:54)
[2023-12-23 19:30] VITALS: PULSE 94; RESP 18; O2SAT 96
[2023-12-23] MEDS: PROPYLTHIOURACIL 50 MG TAB PO SCH (19:59)
[2023-12-23] MEDS: METOPROLOL TARTRATE 25 MG TAB PO SCH (22:00)
[2023-12-24] VITALS (7 sets, daily range): BP systolic 113–121; BP diastolic 43–58; PULSE 90–102; RESP 18–19; TEMP 36.9; O2SAT 95–98
[2023-12-24 05:12] LABS: Basophils # (auto) 0 10 ^3/uL (0-0.2); Eosinophils # (auto) 0 10 ^3/uL (0-0.8); Monocytes # (auto) 0.3 10 ^3/uL (0-1.3)
[2023-12-24 05:14] LABS: Basophils % (auto) 0.1 % (0.0-2.0); Hematocrit 36.1 % (36.0-46.0); Hemoglobin 12.2 g/dL (12.2-16.2); Lymphocytes # (auto) 1.1 10 ^3/uL (0.4-5.4); Lymphocytes % (auto) 13.5 % (10.0-50.0); Mean Corpuscular Hemoglobin 26.5 pg (28.0-32.0); Mean Corpuscular Hgb Conc. 33.7 g/dL (32.0-36.0); Mean Corpuscular Volume 78.9 fL (80.0-100.0); Monocytes % (auto) 3.6 % (0.0-12.0); Neutrophils # (auto) 6.6 10 ^3/uL (1.6-8.6); Neutrophils % (auto) 82.8 % (37.0-80.0); Red Blood Cells 4.58 10^6/uL (4.0-5.20); Red Cell Distribution Width 13.2 % (11.8-14.3); White Blood Cell 7.9 10^3/uL (4.4-10.8)
[2023-12-24 05:35] LABS: Alanine Aminotransferase 47 U/L (7-40); Albumin 3.9 g/dL (3.2-4.8); Alkaline Phosphatase 91 U/L (46-116); Anion Gap 7 (5-15); Aspartate Aminotransferase 18 U/L (13-40); BUN/Creatinine Ratio 37.5 (10.0-20.0); Blood Urea Nitrogen 12 mg/dL (9-23); Calcium 9.8 mg/dL (8.7-10.4); Carbon Dioxide 23 mmol/L (20-30); Chloride 108 mmol/L (98-107); Glucose 129 mg/dL (74-106); Potassium 4.2 mmol/L (3.5-5.1); Sodium 138 mmol/L (136-145)
[2023-12-24 05:36] LABS: Bilirubin, Total 0.5 mg/dL (0.2-1.0); Total Protein 6.2 g/dL (5.7-8.2)
[2023-12-24] MEDS: predniSONE 5 MG TAB PO SCH (09:36)
[2023-12-24] MEDS ORDERED: PREDNISONE 10 MG PO SCH (10:00)
== END 2023-12-24 13:42 | disposition home or self-care (01) | DRG 812 ==
LOC: ER 08:32 → TELE 12:59 → TELE-EAST 12-24 05:06
PROVIDERS: ADMIT Nurse Practitioner Family; ATTEND Internal Medicine
DX: T44.7X1A Poisoning by beta-adrenoreceptor antagonists, accidental (unintentional), initial encounter (principal); E05.91 Thyrotoxicosis, unspecified with thyrotoxic crisis or storm; E03.9 Hypothyroidism, unspecified; F41.9 Anxiety disorder, unspecified; J45.909 Unspecified asthma, uncomplicated; R63.4 Abnormal weight loss; Z91.018 Allergy to other foods; Z88.4 Allergy status to anesthetic agent; Z88.8 Allergy status to other drugs, medicaments and biological substances; Z79.899 Other long term (current) drug therapy; Z68.22 Body mass index [BMI] 22.0-22.9, adult
CPT/HCPCS: 36415; 80053; 80307; 80320; 80329; 81001; 81025; 84436; 84439; 84443; 84480; 84481; 84702; 85025; 87081; 93005; 99291; G0378

== ENCOUNTER 2024-07-13 13:26 | Emergency (ER) | payer MEDICAID ==
[~2024-07-13] VITALS: Ht 157.5 cm; Wt 67.0 kg
[2024-07-13] MEDS ORDERED: AZIT1POW PO (14:41)
[2024-07-13 15:00] VITALS: BP 100/55; PULSE 74; RESP 20; TEMP 98.8; O2SAT 98
[2024-07-13] MEDS ORDERED: CEPH250C PO (15:40)
== END 2024-07-13 15:01 | disposition home or self-care (01) ==
LOC: ER 13:26
DX: J20.9 Acute bronchitis, unspecified (principal); J45.909 Unspecified asthma, uncomplicated
CPT/HCPCS: 71046

== ENCOUNTER 2025-01-11 07:19 | Inpatient (IN) | payer MEDICAID ==
[2025-01-11] VITALS (13 sets, daily range): BP systolic 99–123; BP diastolic 51–76; PULSE 67–119; RESP 16–22; TEMP 97.5–98.2; O2SAT 92–100
[~2025-01-11] VITALS: Ht 157.5 cm; Wt 85.5 kg
[~2025-01-11 07:19] MED LIST changes: +AZIT1POW PO; +CEPH250C PO
--- NOTE | 2025-01-11 07:44 | ED.PDOC ---
SOB-HPI HPI Comments 34-year-old female with PMHx Asthma, Thyroid Disease presents with a chief complaint of SOB x 4 days with associated cough. Patient mentions that she has been feeling flu-like symptoms for the past x 4 days, worsening each day, and now is feeling pain on inspiration. Patient was sating at 91% on room air and placed on 2L/NC in triage and is now at 93%. Patient has a nebulizer at home which she states that she has been using, but still feels SOB. No other symptoms or modifying factors present at this time. Time Seen by MD: 07:34 Primary Care Provider: TESSY Reviewed notes: Medications, Allergies Information Source: Patient Mode of Arrival: Ambulatory Severity: Moderate Timing: Days Duration: Since onset Context: At Rest PE Risk Factors: None History of: Asthma Prehospital treatment: None Associated Signs and Symptoms: Wheeze, Cough If cough with SOB: Non-Productive Past Medical History PAST MEDICAL HISTORY: Asthma, Thyroid Surgical History: [employer] UP OPERATOR History: No Pertinent G[employer] UP OPERATOR History Family History Family History: Reviewed,noncontributory to illness Social History Smoker: Non-Smoker Alcohol: Occasionally Drugs: Denies Drug Use Lives In: Home Constitutional: denies: chills, diaphoresis, fatigue, fever, malaise, sweats, weakness, others EENTM: denies: blurred vision, double vision, ear bleeding, ear discharge, ear drainage, ear pain, ear ringing, eye pain, eye redness, hearing loss, mouth pain, mouth swelling, nasal discharge, nose bleeding, nose congestion, nose pain, photophobia, tearing, throat pain, throat swelling, voice changes, others Respiratory: reports: cough, shortness of breath; denies: hemoptysis, orthopnea, SOB at rest, SOB with excertion, stridor, wheezing, others Cardiovascular: denies: chest pain, dizzy spells, diaphoresis, Dyspnea on exertion, edema, irregular heart beat, left arm pain, lightheadedness, palpitations, PND, syncope, others Gastrointestinal: denies: abdomen distended, abdominal pain, blood streaked bowels, constipated, diarrhea, dysphagia, difficulty swallowing, hematemesis, melena, nausea, poor appetite, poor fluid intake, rectal bleeding, rectal pain, vomiting, others Genitourinary: denies: abnormal vagina bleeding, burning, dyspareunia, dysuria, flank pain, frequency, hematuria, incontinence, pain, , vagina discharge, urgency, others Neurological: denies: dizziness, fainting, headache, left sided numbness, left sided weakness, numbness, paresthesia, pre-existing deficit, right sided numbness, right sided weakness, seizure, speech problems, tingling, tremors, weakness, others Musculoskeletal: denies: back pain, gout, joint pain, joint swelling, muscle pain, muscle stiffness, neck pain, others Integumetry: denies: bruises, change in color, change in hair/nails, dryness, laceration, lesions, lumps, rash, wounds, others Allergic/Immunocompromised: denies: Difficulty Healing, Frequent Infections, Hives, Itching, others Hematologic/Lymphatic: denies: anemia, blood clots, easy bleeding, easy bruising, swollen glands, others Endocrine: denies: excessive hunger, excessive sweating, excessive thirst, excessive urination, flushing, intolerance to cold, intolerance to heat, unexplained weight gain, unexplained weight loss, others Psychiatric: denies: anxiety, bipolar disorder, depression, hopeless, panic disorder, schizophrenia, sleepless, suicidal, others All Other Systems: Reviewed and Negative Physical Exam General Appearance: Moderate Distress, Normal HEENT: Normal ENT Inspection, Pharynx Normal, TMs Normal Neck: Full Range of Motion, Non-Tender, Normal, Normal Inspection Respiratory: Accessory Muscle Use, Chest Non-Tender, Wheezing Cardiovascular: No Edema, No JVD, No Murmur, No Gallop, Normal Peripheral Pulses, Tachycardia Breast Exam: Deferred Gastrointestinal: No Organomegaly, Non Tender, No Pulsatile Mass, Normal Bowel Sounds, Soft Genitalia: Deferred Pelvic: Deferred Rectal: Deferred Extremities: No calf tenderness, Normal capillary refill, Normal inspection, Normal range of motion, Non-tender, No pedal edema Musculoskeletal : Apperance: Normal Neurologic: Alert, right of way worker II-XII nml as Tested, No Motor Deficits, Normal Affect, Normal Mood, No Sensory Deficits Cerebellar Function: Normal Reflexes: Normal Skin: Dry, Normal Color, Warm Peripheral Pulses: 3+ Radial (R), 3+ Radial (L) Lymphatic: No Adenopathy Was a procedure done? Was a procedure done?: No Differential Dx Differential Diagnosis: Anxiety, Asthma, Bronchitis, CHF, COPD X-Ray, Labs, Meds, VS Vital Signs Date Time Temp Pulse Resp B/P (MAP) Pulse Ox O2 Delivery O2 Flow Rate FiO2 01/11/25 07:48 20 91 Room Air* 0 21 01/11/25 07:30 98.3 124 20 116/73 (87) 9 Patient alert. Complaining of shortness a breath. Tachycardia. Placed on oxygen. Has been sick for few days. Has not seen any provider. History of asthma. Establish intravenous access. Was given steroid. Was given breathing treatment. Possible pneumonitis. Possible pneumonia. Explained to the patient. Continue cardiac monitoring. Time of 1ST Reevaluation: 08:04 Reevaluation 1ST: Unchanged Patient Education/Counseling: Diagnosis, Treatment, Prognosis Family Education/Counseling: Diagnosis, Treatment, Prognosis Departure 1 Departure Time of Disposition: 07:52 Impression: Primary Impression: Acute respiratory failure Qualified Codes: J96.01 - Acute respiratory failure with hypoxia Additional Impressions: Pneumonitis Asthma exacerbation Qualified Codes: J45.41 - Moderate persistent asthma with (acute) exacerbation Disposition: ADMITTED INPATIENT Admit to: Med Surg Condition: Guarded Critical Care Note Critical Care Time?: Yes (90 min-critical care time only) Critical care comment: Placed on oxygen Stability Stability form required: No Heart Score Heart Score: Heart Score Response (Comments) Value History N/A 0 EKG N/A 0 Age N/A 0 Risk Factors N/A 0 Troponin N/A 0 Total 0 I personally scribed for EVI FERNÁNDEZ MD ([email or web address]) on 01/11/25 at 07:44. Electronically submitted by Gordon Dooley ([email or web address]). EVI FERNÁNDEZ MD Jan 11, 2025 07:44
[2025-01-11] MEDS ORDERED: ALBUTEROL SULF 2.5 MG/0.5ML(0.5%) NEB SOLN NEB ONE (08:00)
[2025-01-11] MEDS: IPRATROPIUM BROM 0.5 MG/2.5ML INH SOL NEB ONE (08:21)
[2025-01-11] MEDS: LEVALBUTEROL HCL 1.25 MG/3 ML NEB NEB ONE (08:21)
--- NOTE | 2025-01-11 08:24 | DVH ---
EXAM: XY CHEST PORTABLE Indication: sob Technique: Single frontal view of the chest was obtained Comparison: XY CHEST PORTABLE on DOS: 12/19/23, XY CHEST PORTABLE on DOS: 04/22/23, CXRP on DOS: 11/26/22, CHEST PORTABLE on DOS: 11/26/22, CXRP on DOS: 11/25/22 FINDINGS: Lines and Tubes: None Lungs: No focal consolidation. Pleura: No effusion. No pneumothorax. Cardiomediastinal contours: Unremarkable Bones: No acute osseous abnormality. IMPRESSION: No acute cardiopulmonary disease.
[2025-01-11 08:25] LABS: Basophils # (auto) 0 10 ^3/uL (0-0.2); Basophils % (auto) 0.4 % (0.0-2.0); Eosinophils # (auto) 0.2 10 ^3/uL (0-0.8); Eosinophils % (auto) 2.8 % (0.0-7.0); Hematocrit 42.8 % (36.0-46.0); Hemoglobin 14.1 g/dL (12.2-16.2); Lymphocytes # (auto) 1.1 10 ^3/uL (0.4-5.4); Lymphocytes % (auto) 13.4 % (10.0-50.0); Mean Corpuscular Hemoglobin 29.3 pg (28.0-32.0); Mean Corpuscular Hgb Conc. 32.9 g/dL (32.0-36.0); Mean Corpuscular Volume 88.8 fL (80.0-100.0); Monocytes # (auto) 0.7 10 ^3/uL (0-1.3); Monocytes % (auto) 8.5 % (0.0-12.0); Neutrophils % (auto) 74.9 % (37.0-80.0); Platelet Count (auto) 245 10^3/uL (140-450); Red Blood Cells 4.82 10^6/uL (4.0-5.20); Red Cell Distribution Width 13.4 % (11.8-14.3)
[2025-01-11] MEDS ORDERED: ONDANSETRON HCL 4 MG/2 ML VIAL IV PRN (08:30)
[2025-01-11] MEDS ORDERED: ACETAMINOPHEN 325 MG TAB PO PRN (08:30)
[2025-01-11 08:31] LABS: Chloride 104 mmol/L (98-107); Potassium 4.1 mmol/L (3.5-5.1); Sodium 139 mmol/L (136-145)
[2025-01-11 08:32] LABS: Anion Gap 11 (5-15); Carbon Dioxide 24 mmol/L (20-31)
[2025-01-11 08:33] LABS: Calcium 9.4 mg/dL (8.7-10.4)
[2025-01-11 08:37] LABS: Glucose 103 mg/dL (74-106)
[2025-01-11 08:38] LABS: BUN/Creatinine Ratio 9.7 (10.0-20.0); Blood Urea Nitrogen 6 mg/dL (9-23)
[2025-01-11] MEDS ORDERED: LEVO125T7 PO (08:41)
--- NOTE | 2025-01-11 08:49 | DVHHP2 ---
History of Present Illness Reason for Visit: SOB History of Present Illness Tita Willson is a 34-year-old female with past medical history of asthma,hypothyroidism, , and hysterectomy who presents to the ED for shortness of breath x4 days. Patient reports that she has been having a light fever since last night also green productive phlegm for the last 3 days with cough. Patient reports that her daughter and herself are sick at home with a cold. Patient also reports that she has been compliant with her medications, she reports that she drinks about 500-750 mL of hard liquor 2-3 times per week does not smoke cigarettes but does use marijuana. Patient denies chest pain, lightheadedness, weakness, dizziness, chills, wheezing, chest pain, abdominal pain, nausea, vomiting, and diarrhea. Pulmonary: Asthma Endocrine: Hypothyroidism Past Surgical History: , Hysterectomy Family History: CVA, Hypertension, Other (Mom and dad with both hypertension and mom with CVA) Smoke: No ALCOHOL: heavy Drugs: Marijuana Lives: with Family Domestic Violence: Neg Review of Systems Respiratory: Shortness of breath Allergies: Coded Allergies: Anesthetics, Amide (Verified Allergy, Unknown, 12/23/23) Banana (Verified Allergy, Unknown, 11/22/22) Medications Current Medications Medications Dose Ordered Sig/Anthony Route Start Time Stop Time Status Last Admin Dose Admin Levalbuterol HCl 1.25 mg Q6HR NEB 01/11/25 12:00 UNV Ipratropium Vega 0.5 mg Q6HR NEB 01/11/25 12:00 UNV Budesonide 0.5 mg BID NEB 01/11/25 10:00 UNV Methylprednisolone Sodium Succinate 80 mg Q8HR IV 01/11/25 14:00 UNV Famotidine 20 mg DAILY IV 01/11/25 10:00 UNV Ondansetron HCl 4 mg Q4HP PRN IV 01/11/25 08:30 UNV Acetaminophen 650 mg Q6HP PRN PO 01/11/25 08:30 UNV Metoprolol Tartrate 50 mg BID PO 01/11/25 10:00 UNV Exam Vital Signs Vital Signs Date Time Temp Pulse Resp B/P (MAP) Pulse Ox O2 Delivery O2 Flow Rate FiO2 01/11/25 08:21 94 Nasal Cannula* 2 01/11/25 07:48 20 01/11/25 07:30 98.3 124 116/73 (87) General Appearance: Alert, Oriented X3, Cooperative, No acute distress HEENT: Atraumatic, PERRLA, EOMI, Mucous membr. moist/pink Respiratory: Normal air movement Cardiovascular: Normal S1, Normal S2, No murmurs Abdominal: Normal bowel sounds, Soft, No tenderness, No hepatospenomegaly, No masses Extremities: No clubbing, No cyanosis, No edema, Normal pulses, No tenderness/swelling Skin: No rashes, No breakdown, No significant lesion Neuro: Normal gait, Normal speech, Strength at 5/5 X4 ext, Normal tone, Sensation intact Psych/Mental Status: Mental status NL, Mood NL Labs/Xrays Labs Test 01/11/25 07:59 Range/Units White Blood Count 8.0 4.4-10.8 10^3/uL Red Blood Count 4.82 4.0-5.20 10^6/uL Hemoglobin 14.1 12.2-16.2 g/dL Hematocrit 42.8 36.0-46.0 % Mean Corpuscular Volume 88.8 80.0-100.0 fL Mean Corpuscular Hemoglobin 29.3 28.0-32.0 pg Mean Corpuscular Hemoglobin Concent 32.9 32.0-36.0 g/dL Red Cell Distribution Width 13.4 11.8-14.3 % Platelet Count 245 140-450 10^3/uL Mean Platelet Volume 8.4 6.9-10.8 fL Neutrophils (%) (Auto) 74.9 37.0-80.0 % Lymphocytes (%) (Auto) 13.4 10.0-50.0 % Monocytes (%) (Auto) 8.5 0.0-12.0 % Eosinophils (%) (Auto) 2.8 0.0-7.0 % Basophils (%) (Auto) 0.4 0.0-2.0 % Neutrophils # (Auto) 6.0 1.6-8.6 10 ^3/uL Lymphocytes # (Auto) 1.1 0.4-5.4 10 ^3/uL Monocytes # (Auto) 0.7 0-1.3 10 ^3/uL Eosinophils # (Auto) 0.2 0-0.8 10 ^3/uL Basophils # (Auto) 0 0-0.2 10 ^3/uL Nucleated Red Blood Cells 0.0 % Sodium Level 139 136-145 mmol/L Potassium Level 4.1 3.5-5.1 mmol/L Chloride Level 104 98-107 mmol/L Carbon Dioxide Level 24 20-31 mmol/L Anion Gap 11 5-15 Blood Urea Nitrogen 6 L 9-23 mg/dL Creatinine 0.62 0.550-1.02 mg/dL Glomerular Filtration Rate Calc 121 >90 mL/min BUN/Creatinine Ratio 9.7 L 10.0-20.0 Serum Glucose 103 74-106 mg/dL Calcium Level 9.4 8.7-10.4 mg/dL Troponin I High Sensitivity 3 L </=34 ng/L EXAM: XY CHEST PORTABLE Indication: sob Technique: Single frontal view of the chest was obtained Comparison: XY CHEST PORTABLE on DOS: 12/19/23, XY CHEST PORTABLE on DOS: 04/22/23, CXRP on DOS: 11/26/22, CHEST PORTABLE on DOS: 11/26/22, CXRP on DOS: 11/25/22 FINDINGS: Lines and Tubes: None Lungs: No focal consolidation. Pleura: No effusion. No pneumothorax. Cardiomediastinal contours: Unremarkable Bones: No acute osseous abnormality. IMPRESSION: No acute cardiopulmonary disease. Assessment/Plan Assessment/Plan Assessment Acute on chronic asthma exacerbation History of hypothyroidism Plan [facility] Respiratory treatments IV steroids PPI IV antibiotics-ceftriaxone + azithromycin COVID test done flu test done UA ordered Home medications reconciled Diet Plan discussed with: Patient My Orders Orders - RUSH KANG [employer]PER[employer] Procedure Category Date Status Time Levalbuterol Hcl PHA 01/11/25 Logged (Xopenex Medneb) 12:00 Ipratropium Medneb PHA 01/11/25 Logged (Atrovent Medneb) 12:00 Budesonide PHA 01/11/25 Logged (Inhalation) 10:00 Methylprednisolone PHA 01/11/25 Logged Sod Succ (Solu Medrol 14:00 Famotidine Injection PHA 01/11/25 Logged (Pepcid Injection) 10:00 Admit ADMIT 01/11/25 Transmitted 08:29 Allergies NORMA 01/11/25 In Process 08:29 Code Status CODE 01/11/25 Transmitted 08:29 Ondansetron Hcl PHA 01/11/25 Logged (Zofran) 08:30 Complete Blood Count LAB 01/12/25 Verified 04:00 Comprehensive LAB 01/12/25 Verified Metabolic Panel 04:00 Cardiac DIET 01/11/25 Transmitted Diet-2gna,Lofat,Lochol Breakfast Acetaminophen Tablet PHA 01/11/25 Logged (Tylenol Tablet) 08:30 Metoprolol Tartrate PHA 01/11/25 Logged Tablet (Lopressor Ta 10:00 Ceftriaxone Ivpb PHA 01/11/25 Transmitted Rocephin 09:00 Azithromycin 500mg/ PHA 01/11/25 Transmitted 250ml (Zithromax 50 10:00 Date of Service: Jan 11, 2025 Billing Provider: RUSH KANG Common Visit Codes: 10710-[id number] INP/OBS CARE (HIGH) RUSH KANG Jan 11, 2025 08:49
[2025-01-11] MEDS: cefTRIAXone 1GM/50ML D5W 50 ML IV SCH (09:00)
[2025-01-11] MEDS: methylPREDNISolone SOD SUCC 125 MG/2 ML VL IV ONE (09:39)
[2025-01-11] MEDS: cefTRIAXone 1GM/50ML D5W 50 ML IV ONE (09:40)
[2025-01-11] MEDS ORDERED: AZITHROMYCIN 500MG/ 250ML 250 ML IV SCH (10:00)
[2025-01-11] MEDS: FAMOTIDINE (10MG/ML) 2ML VL IV SCH (10:13)
[2025-01-11] MEDS: AZITHROMYCIN 500MG/ 250ML 250 ML IV ONE (10:18)
--- NOTE | 2025-01-11 10:40 | ECG ---
[facility] Test Date: 2025-01-11 Test Time: 09:45:53 Pat Name: LOR REN Department: ER Room: [address] [place] [address] Gender: F Senior Web Architect: RIKI : 1990 Requested By: EVI FERNÁNDEZ Order Number: [id number] Reading MD: Eulalio Sol Measurements Intervals Wolsey Rate: 111 P: 92 RI: 135 QRS: 94 QRSD: 77 T: 0 QT: 328 QTc: 446 Interpretive Statements Sinus tachycardia GUSTABO, consider biatrial enlargement Probable right ventricular hypertrophy Abnormal T, consider ischemia, diffuse leads Electronically Signed On 01-12-2025 17:51:25 PST by Eulalio Sol Please click the below link to view image of tracing.
[2025-01-11] MEDS: IPRATROPIUM BROM 0.5 MG/2.5ML INH SOL NEB SCH (10:55)
[2025-01-11] MEDS: BUDESONIDE (INHALATION) 0.5 MG/2 ML NEB NEB SCH (10:55)
[2025-01-11] MEDS: LEVALBUTEROL HCL 1.25 MG/3 ML NEB NEB SCH (10:55)
[2025-01-11 10:57] LABS: COVID19 ANTIGEN SOFIA FIA NEGATIVE (NEGATIVE); Rapid Influenza A Negative (Negative); Rapid Influenza B Negative (Negative)
[2025-01-11] MEDS: METOPROLOL TARTRATE 50 MG TAB PO SCH (11:25)
[2025-01-11] MEDS: methylPREDNISolone SOD SUCC 125 MG/2 ML VL IV SCH (14:24)
[2025-01-11 14:42] LABS: Urine Bacteria FEW /hpf (None Seen); Urine Blood Negative /uL (Negative); Urine Clarity Clear (Clear); Urine Color Colorless (Yellow); Urine Protein, UAD Negative (Negative); Urine Specific Gravity 1.004 (1.001-1.035); Urine Squamous Epithelial Cell FEW /hpf (<5); Urine Urobilinogen Normal (Negative); Urine WBC 1 /HPF (0-5); Urine pH 6.5 (5.0-9.0)
[2025-01-11] MEDS: HYDROcodone-ACET 5/325MG TAB PO PRN (16:41)
[2025-01-12] VITALS (10 sets, daily range): BP systolic 92–124; BP diastolic 57–74; PULSE 66–104; RESP 16–18; TEMP 97.3–98.9; O2SAT 92–100
[2025-01-12 06:34] LABS: Basophils # (auto) 0 10 ^3/uL (0-0.2); Basophils % (auto) 0.1 % (0.0-2.0); Eosinophils # (auto) 0 10 ^3/uL (0-0.8); Hematocrit 39.7 % (36.0-46.0); Hemoglobin 13.5 g/dL (12.2-16.2); Lymphocytes # (auto) 1.2 10 ^3/uL (0.4-5.4); Lymphocytes % (auto) 11.1 % (10.0-50.0); Mean Corpuscular Hemoglobin 29.9 pg (28.0-32.0); Mean Corpuscular Volume 87.9 fL (80.0-100.0); Monocytes # (auto) 0.4 10 ^3/uL (0-1.3); Monocytes % (auto) 3.2 % (0.0-12.0); Neutrophils # (auto) 9.5 10 ^3/uL (1.6-8.6); Neutrophils % (auto) 85.6 % (37.0-80.0); Platelet Count (auto) 283 10^3/uL (140-450); Red Blood Cells 4.51 10^6/uL (4.0-5.20); Red Cell Distribution Width 13.5 % (11.8-14.3); White Blood Cell 11.2 10^3/uL (4.4-10.8)
[2025-01-12 06:59] LABS: Alanine Aminotransferase 11 U/L (7-40); Alkaline Phosphatase 94 U/L (46-116); Anion Gap 11 (5-15); BUN/Creatinine Ratio 20.9 (10.0-20.0); Bilirubin, Total 0.3 mg/dL (0.2-1.0); Blood Urea Nitrogen 14 mg/dL (9-23); Calcium 9.8 mg/dL (8.7-10.4); Carbon Dioxide 23 mmol/L (20-31); Chloride 104 mmol/L (98-107); Potassium 4.1 mmol/L (3.5-5.1); Sodium 138 mmol/L (136-145); Total Protein 7.8 g/dL (5.7-8.2)
[2025-01-12 07:07] LABS: Albumin 4.9 g/dL (3.2-4.8); Aspartate Aminotransferase < 8 U/L (13-40); Glucose 139 mg/dL (74-106)
[2025-01-12] MEDS ORDERED: CHOL20007 PO (09:02)
[2025-01-12] MEDS ORDERED: AZITHROMYCIN 500MG/ 250ML 250 ML IV SCH (10:00)
[2025-01-12] MEDS: AZITHROMYCIN 500MG/ 250ML 250 ML IV SCH (11:08)
[2025-01-12] MEDS: PANTOPRAZOLE 40 MG/10 ML VIAL INJ IV ONE (14:35)
[2025-01-12] MEDS ORDERED: PRED20TA2 PO (15:40)
[2025-01-12] MEDS ORDERED: BUDE1AER5 IN (15:40)
[2025-01-12] MEDS ORDERED: DOXY1CAP57 PO (15:40)
--- NOTE | 2025-01-12 15:41 | DVHDS2 ---
Discharge Summary Date of Admission Jan 11, 2025 at 08:29 Date of Discharge: Jan 12, 2025 Labs/Diagnostic Data: Laboratory Results Test 01/12/25 05:49 01/11/25 14:07 01/11/25 08:30 01/11/25 07:59 White Blood Count 11.2 10^3/uL (4.4-10.8) Red Blood Count 4.51 10^6/uL (4.0-5.20) Hemoglobin 13.5 g/dL (12.2-16.2) Hematocrit 39.7 % (36.0-46.0) Mean Corpuscular Volume 87.9 fL (80.0-100.0) Mean Corpuscular Hemoglobin 29.9 pg (28.0-32.0) Mean Corpuscular Hemoglobin Concent 34.0 g/dL (32.0-36.0) Red Cell Distribution Width 13.5 % (11.8-14.3) Platelet Count 283 10^3/uL (140-450) Mean Platelet Volume 8.6 fL (6.9-10.8) Neutrophils (%) (Auto) 85.6 % (37.0-80.0) Lymphocytes (%) (Auto) 11.1 % (10.0-50.0) Monocytes (%) (Auto) 3.2 % (0.0-12.0) Eosinophils (%) (Auto) 0.0 % (0.0-7.0) Basophils (%) (Auto) 0.1 % (0.0-2.0) Neutrophils # (Auto) 9.5 10 ^3/uL (1.6-8.6) Lymphocytes # (Auto) 1.2 10 ^3/uL (0.4-5.4) Monocytes # (Auto) 0.4 10 ^3/uL (0-1.3) Eosinophils # (Auto) 0 10 ^3/uL (0-0.8) Basophils # (Auto) 0 10 ^3/uL (0-0.2) Nucleated Red Blood Cells 0.0 % Sodium Level 138 mmol/L (136-145) Potassium Level 4.1 mmol/L (3.5-5.1) Chloride Level 104 mmol/L (98-107) Carbon Dioxide Level 23 mmol/L (20-31) Anion Gap 11 (5-15) Blood Urea Nitrogen 14 mg/dL (9-23) Creatinine 0.67 mg/dL (0.550-1.02) Glomerular Filtration Rate Calc 119 mL/min (>90) BUN/Creatinine Ratio 20.9 (10.0-20.0) Serum Glucose 139 mg/dL (74-106) Calcium Level 9.8 mg/dL (8.7-10.4) Total Bilirubin 0.3 mg/dL (0.2-1.0) Aspartate Amino Transferase (AST) < 8 U/L (13-40) Alanine Aminotransferase (ALT) 11 U/L (7-40) Alkaline Phosphatase 94 U/L (46-116) Total Protein 7.8 g/dL (5.7-8.2) Albumin 4.9 g/dL (3.2-4.8) Urine Color Colorless (Yellow) Urine Clarity Clear (Clear) Urine pH 6.5 (5.0-9.0) Urine Specific [place] 1.004 (1.001-1.035) Urine Protein Negative (Negative) Urine Ketones Trace (Negative) Urine Blood Negative /uL (Negative) Urine Nitrite Negative (Negative) Urine Bilirubin Negative (Negative) Urine Urobilinogen Normal mg/dL (Negative) Urine Leukocyte Esterase Negative /uL (Negative) Urine RBC None seen /hpf (0 - 4) Urine Microscopic WBC 1 /HPF (0-5) Urine Squamous Epithelial Cells Few /hpf (<5) Urine Bacteria Few /hpf (None Seen) Urine Glucose Normal mg/dL (Normal) Influenza Type A Antigen Negative (Negative) Influenza Type B Antigen Negative (Negative) SARS-CoV-2 Antigen (Rapid) Negative (NEGATIVE) Troponin I High Sensitivity 3 ng/L (</=34) Other Laboratory Tests 01/12/25 05:49 Brief Hx & Hospital Course: HPI: Tita Willson is a 34-year-old female with past medical history of asthma,hypothyroidism, , and hysterectomy who presents to the ED for shortness of breath x4 days. Patient reports that she has been having a light fever since last night also green productive phlegm for the last 3 days with cough. Patient reports that her daughter and herself are sick at home with a cold. Patient also reports that she has been compliant with her medications, she reports that she drinks about 500-750 mL of hard liquor 2-3 times per week does not smoke cigarettes but does use marijuana. Patient denies chest pain, lightheadedness, weakness, dizziness, chills, wheezing, chest pain, abdominal pain, nausea, vomiting, and diarrhea. summary: Patient presented with ongoing shortness of breath and cough. Produce sputum green. Has sick contacts with child and . On admit finding patient has flu COVID negative, chemistry and CBC negative, chest x-ray is unremarkable. Patient is on improving condition and symptoms align with pneumonia. On admit patient was requiring oxygen, and vitals show tachypnea and tachycardia. Patient was admitted for acute hypoxic respiratory failure due to pneumonia. Started on empiric antibiotics with azithromycin and ceftriaxone. Patient has history of asthma and wheezing on admit and started on IV Solu- Medrol 80 IV mg q.8h. After initial treatment patient improves drastically. Initially still requiring oxygen on a.m. but eventually weaned off by afternoon. Patient has no increased work of breathing stable talking full sentences, patient was stable for discharge with plan below. diagnosis: acute hypoxic respiratory failure d/t pneumonia, g+/g- Sepsis due to pneumonia Tachycardia resolved Tachypnea resolved Leukocytosis due to corticosteroids acute asthma exacerbation history hypothyroid discharge plan: Doxycycline 100 mg b.i.d. for 7 days Prednisone 40 mg daily for x5 days Symbicort daily and Ventolin as needed for shortness of breath Continue other home medications PCP follow-up Condition at Discharge: Good Final Diagnosis/Problems List acute hypoxic respiratory failure d/t pneumonia, g+/g- Sepsis due to pneumonia Tachycardia resolved Tachypnea resolved Leukocytosis due to corticosteroids acute asthma exacerbation history hypothyroid Discharge Disposition: Home Discharge Instruct/Medications Diet: Regular Activity: No Restrictions, As Tolerated Follow Up/Referral: pcp Medications: as below Discharge Statement: "Patient was advised to return to the ER or call 911 if any headaches, dizziness, shortness of breath, chest pain, abdominal pain, bleeding, fevers, or worsening of medical condition. Patient was counseled about treatment plan, medications, possible side effects, patientverbalized understanding. All questions were answered to the best of my ability. This discharge took greater then 30 minutes in planning, reviewing documentation, counseling the patient, and discussing with other team members." Date of Service: Jan 12, 2025 Billing Provider: CAROLINA SMART MD Common Visit Codes: 90523-OJC/OBS DISCH DAY >30min CAROLINA SMART MD Jan 12, 2025 15:41
[2025-01-13] MEDS ORDERED: PANTOPRAZOLE 40 MG/10 ML VIAL INJ IV SCH (10:00)
== END 2025-01-12 18:22 | disposition home or self-care (01) | DRG 720 ==
LOC: ER 07:19 → OVERFLOW 08:29 → EAST 17:37
DX: A41.50 Gram-negative sepsis, unspecified (principal); J96.01 Acute respiratory failure with hypoxia; J15.69 Pneumonia due to other Gram-negative bacteria; J45.901 Unspecified asthma with (acute) exacerbation; J15.9 Unspecified bacterial pneumonia; F12.90 Cannabis use, unspecified, uncomplicated; Z20.822 Contact with and (suspected) exposure to COVID-19; T38.0X5A Adverse effect of glucocorticoids and synthetic analogues, initial encounter; E03.9 Hypothyroidism, unspecified; Z98.891 History of uterine scar from previous surgery; Z90.710 Acquired absence of both cervix and uterus; Z82.49 Family history of ischemic heart disease and other diseases of the circulatory system; Z82.3 Family history of stroke; Z88.4 Allergy status to anesthetic agent; Z91.018 Allergy to other foods; Z79.899 Other long term (current) drug therapy; Z79.1 Long term (current) use of non-steroidal anti-inflammatories (NSAID); Y92.89 Other specified places as the place of occurrence of the external cause; Z79.2 Long term (current) use of antibiotics
CPT/HCPCS: 36415; 71045; 80048; 80053; 81001; 84484; 85025; 87426; 87804; 93005; 94640; 99291; G0378; J2470; J3490

== ENCOUNTER 2025-09-02 18:41 | Emergency (ER) | payer MEDICAID ==
[~2025-09-02] VITALS: Ht 157.5 cm; Wt 78.4 kg
[~2025-09-02 18:41] MED LIST changes: -AZIT1POW PO; +BUDE1AER5 IN; -CEPH250C PO; +CHOL20007 PO; +DOXY1CAP57 PO; +LEVO125T7 PO; -MET50T PO; -PRED10TA PO; +PRED20TA2 PO
[2025-09-02] MEDS: IPRATROPIUM BROM 0.5 MG/2.5ML INH SOL NEB ONE (20:33)
[2025-09-02] MEDS: ALBUTEROL SULF 2.5 MG/0.5ML(0.5%) NEB SOLN NEB ONE (20:33)
[2025-09-02] MEDS: predniSONE 20 MG TAB PO ONE (20:34)
--- NOTE | 2025-09-02 20:44 | ED.PDOC ---
History of Present Illness HPI Comments 35-year-old female with past medical history of thyroid disorder, presents for evaluation of shortness of breath, cough over the past month. Patient reports cough productive of whitish sputum. Denies any fevers with this. Concerned that she may have a pneumonia. Chief Complaint: Shortness of Breath Time Seen by MD: 19:17 Primary Care Provider: TESSY Allergies: Coded Allergies: Anesthetics, Amide (Verified Allergy, Unknown, 12/23/23) Banana (Verified Allergy, Unknown, 11/22/22) Home Meds Active Scripts Prednisone (Prednisone) 20 Mg Tab, 60 MG PO DAILY for 4 Days, #12 TAB Prov:STACI PRIETO MD 09/02/25 Albuterol Sulfate (VENTOLIN MDI) 90 Mcg Ih, 2 PUFF IN Q4HPRN PRN for 7 Days, #1 INH Prov:STACI PRIETO MD 09/02/25 Prednisone (Prednisone) 20 Mg Tab, 40 MG PO DAILY for 5 Days, #10 MG Prov:CAROLINA SMART MD 01/12/25 Doxycycline Monohydrate (Doxycycline Monohydrate) 100 Mg Cap, 1 CAP PO BID, #14 CAP 0 Refills Prov:CAROLINA SMART MD 01/12/25 Budesonide-Formoterol Fumarate (Budesonide/Formoterol Fum 80-4.5 Mcg/Act) 1 Aer Aer, 1 AER IN DAILY for 30 Days, #1 AER 0 Refills Prov:CAROLINA SMART MD 01/12/25 Reported Medications Cholecalciferol (VITAMIN D3) 2,000 Unit Tab, 2000 UNIT PO DAILY, TAB 01/12/25 Levothyroxine Sodium (Levothyroxine Sodium) 125 Mcg Tab, 1 TAB PO DAILY 01/11/25 Mode of Arrival: Ambulatory Past Medical History PAST MEDICAL HISTORY: Asthma, Thyroid Surgical History: 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 NON PROFIT FINANCIAL CONTROLLER History Family History Family History: Reviewed,noncontributory to illness Social History Smoker: Non-Smoker Alcohol: Occasionally Drugs: Denies Drug Use Lives In: Home Constitutional: denies: chills, diaphoresis, fatigue, fever, malaise, sweats, weakness, others EENTM: denies: blurred vision, double vision, ear bleeding, ear discharge, ear drainage, ear pain, ear ringing, eye pain, eye redness, hearing loss, mouth pain, mouth swelling, nasal discharge, nose bleeding, nose congestion, nose pain, photophobia, tearing, throat pain, throat swelling, voice changes, others Respiratory: reports: cough, shortness of breath Cardiovascular: denies: chest pain, dizzy spells, diaphoresis, Dyspnea on exertion, edema, irregular heart beat, left arm pain, lightheadedness, palpitations, PND, syncope, others Gastrointestinal: denies: abdomen distended, abdominal pain, blood streaked bowels, constipated, diarrhea, dysphagia, difficulty swallowing, hematemesis, melena, nausea, poor appetite, poor fluid intake, rectal bleeding, rectal pain, vomiting, others Genitourinary: denies: abnormal vagina bleeding, burning, dyspareunia, dysuria, flank pain, frequency, hematuria, incontinence, pain, , vagina discharge, urgency, others Neurological: denies: dizziness, fainting, headache, left sided numbness, left sided weakness, numbness, paresthesia, pre-existing deficit, right sided numbness, right sided weakness, seizure, speech problems, tingling, tremors, weakness, others Musculoskeletal: denies: back pain, gout, joint pain, joint swelling, muscle pain, muscle stiffness, neck pain, others Integumetry: denies: bruises, change in color, change in hair/nails, dryness, laceration, lesions, lumps, rash, wounds, others Allergic/Immunocompromised: denies: Difficulty Healing, Frequent Infections, Hives, Itching, others Hematologic/Lymphatic: denies: anemia, blood clots, easy bleeding, easy bruising, swollen glands, others Endocrine: denies: excessive hunger, excessive sweating, excessive thirst, excessive urination, flushing, intolerance to cold, intolerance to heat, unexplained weight gain, unexplained weight loss, others Psychiatric: denies: anxiety, bipolar disorder, depression, hopeless, panic disorder, schizophrenia, sleepless, suicidal, others All Other Systems: Reviewed and Negative Physical Exam General Appearance: None HEENT: Normal ENT Inspection Neck: Non-Tender, Normal Inspection Respiratory: No Accessory Muscle Use, Wheezing Cardiovascular: No Edema, No Murmur, Normal Peripheral Pulses, Regular Ra te/Rhythm Breast Exam: Deferred Gastrointestinal: Non Tender, Normal Bowel Sounds, Soft Genitalia: Deferred Pelvic: Deferred Rectal: Deferred Extremities: Normal capillary refill, No pedal edema Neurologic: Alert, camper assembler II-XII nml as Tested, No Motor Deficits, No Sensory Deficits Cerebellar Function: Normal Reflexes: NOT DONE Skin: Normal Color Lymphatic: No Adenopathy Was a procedure done? Was a procedure done?: No Differential Dx Considerations may include: Viral upper respiratory tract infection versus pneumonia versus asthma exacerbation X-Ray, Labs, Meds, VS Vital Signs Date Time Temp Pulse Resp B/P (MAP) Pulse Ox O2 Delivery O2 Flow Rate FiO2 09/02/25 21:59 97.6 76 16 124/85 (98) 94 97.6 09/02/25 20:38 Room Air* 0 21 09/02/25 20:30 18 96 Room Air* 0 21 21 09/02/25 18:43 97.9 85 16 134/91 96 97.9 Lab Test 09/02/25 18:56 Range/Units Urine Test Negative Negative Current Medications Medications (Trade) Dose Ordered Sig/Anthony Route Start Time Stop Time Status Last Admin Prednisone 60 mg ONCE ONCE PO 09/02/25 20:30 09/02/25 20:31 DC 09/02/25 20:34 Albuterol (Ventolin Medneb) 5 mg ONCE ONCE NEB 09/02/25 20:30 09/02/25 20:31 DC 09/02/25 20:33 Ipratropium [place] (Atrovent Medneb) 0.5 mg ONCE ONCE NEB 09/02/25 20:30 09/02/25 20:31 DC 09/02/25 20:33 Time of 1ST Reevaluation: 21:29 (Patient reporting improvement after breathing treatment and steroids.) Reevaluation 1ST: Improved Patient Education/Counseling: Diagnosis, Treatment, Need For Follow Up Family Education/Counseling: No Family Present SEPSIS Sepsis Screen Date sepsis recognized/suspect: Sep 02, 2025 Time Sepsis recognized/suspect: 1842 Recent Procedure: No On Antibiotic Therapy: No Respiratory Rate >20: No Heart Rate >90: Yes Temp<36 C (96.8 F) or >38.3 C: No SBP <90 or MAP <65 mmHG: No New Acute Mental Status Change: No Is the patient on CPAP, BIPAP,: No Physician Orders Chest Xray 1 View (09/02/25 19:18) Vital Signs Date Time Temp Pulse Resp B/P (MAP) Pulse Ox O2 Delivery O2 Flow Rate FiO2 09/02/25 21:59 97.6 76 16 124/85 (98) 94 97.6 09/02/25 20:38 Room Air* 0 21 09/02/25 20:30 18 96 Room Air* 0 21 21 09/02/25 18:43 97.9 85 16 134/91 96 97.9 Medications Medications Dose Ordered Sig/Anthony Route Start Time Stop Time Status Last Admin Dose Admin Albuterol 5 mg ONCE ONCE NEB 09/02/25 20:30 09/02/25 20:31 DC 09/02/25 20:33 Ipratropium [place] 0.5 mg ONCE ONCE NEB 09/02/25 20:30 09/02/25 20:31 DC 09/02/25 20:33 Prednisone 60 mg ONCE ONCE PO 09/02/25 20:30 09/02/25 20:31 DC 09/02/25 20:34 Departure 1 Departure Time of Disposition: 21:31 (35-year-old female with past medical history of asthma presenting for evaluation of persistent cough over the past month, subjective shortness of breath over the past days. Given the reports of cough and shortness of breath consider upper respiratory tract infection. Patient is afebrile here, chest x-ray was performed which upon my review shows no evidence of focal consolidation to suggest a bacterial pneumonia. Patient does arrive with normal vitals. However, does have wheezing upon my examination. Seems consistent with an asthma exacerbation. Patient was given duo nebulizer treatments here and was given the 1st dose of prednisone. Upon reassessment she is feeling significantly improved. Remained hemodynamically stable. Patient this time is stable for discharge further outpatient management of her asthma. Will be given a prescription for 4 additional days of prednisone and will be given an albuterol pump refill. However, given strict return precautions the case symptoms progress despite outpatient management.) Impression: Primary Impression: Asthma exacerbation Additional Impression: Cough Disposition: HOME / SELF CARE / HOMELESS Condition: Stable Additional Instructions: Your chest x-ray does not show any evidence pneumonia. You were given the 1st dose of steroids in the emergency department tonight which is good for 24 hours. Please start taking the next dose of steroids on the night of 09/03/2025. e-Prescriptions Prednisone (Prednisone) 20 Mg Tab 60 MG PO DAILY for 4 Days, #12 TAB Prov: STACI PRIETO MD 09/02/25 Albuterol Sulfate (VENTOLIN MDI) 90 Mcg Ih 2 PUFF IN Q4HP PRN for 7 Days, #1 INH Prov: STACI PRIETO MD 09/02/25 Prednisone (Prednisone) 20 Mg Tab 60 MG PO DAILY for 4 Days, #12 TAB Prov: STACI PRIETO MD 09/02/25 Albuterol Sulfate (VENTOLIN MDI) 90 Mcg Ih 2 PUFF IN Q4HPRN PRN for 7 Days, #1 INH Prov: STACI PRIETO MD 09/02/25 Discharged With: Self Critical Care Note Critical Care Time?: Yes (30 min-critical care time only) Critical care comment: Patient with wheezing requiring 2 nebulizer treatments and oral steroids for asthma exacerbation to ensure that the patient does not develop respiratory distress or become hypoxic Stability Stability form required: No STACI PRIETO MD Sep 02, 2025 20:44
--- NOTE | 2025-09-02 20:54 | DVH ---
CLINICAL HISTORY: shortness of breath, cough x 1 month TECHNIQUE: Single view of the chest was obtained. COMPARISON: XY CHEST PORTABLE on DOS: 01/11/25, CR CHEST 2 VIEW on DOS: 08/20/24, XY CHEST TWO VIEWS RO UTINE on DOS: 07/13/24, XY CHEST PORTABLE on DOS: 12/19/23, XY CHEST PORTABLE on DOS: 04/22/23 FINDINGS: The heart size and pulmonary vasculature are normal. The lungs are clear. IMPRESSION: NO ACUTE CARDIOPULMONARY PROCESS.
[2025-09-02] MEDS ORDERED: PRED20TA2 PO (21:37)
[2025-09-02] MEDS ORDERED: ALBUAER3 IN ×2 (21:37→22:07)
[2025-09-02 21:59] VITALS: BP 124/85; PULSE 76; RESP 16; TEMP 97.6; O2SAT 94
== END 2025-09-02 22:26 | disposition home or self-care (01) ==
LOC: ER 18:41
DX: J45.901 Unspecified asthma with (acute) exacerbation (principal); R05.9 Cough, unspecified; Z88.4 Allergy status to anesthetic agent
CPT/HCPCS: 71045; 81025; 94640; 99284; J7512